=== PATIENT | male | born 1965 ===

== ENCOUNTER 2020-10-26 22:49 | Inpatient (IN) ==
[2020-10-26] MEDS ORDERED: PIPERACILLIN/TAZOBACTAM 3,375 MG in SODIUM CHLORIDE 0.9% 100 ML IV STA (23:27)
[2020-10-26] MEDS ORDERED: ONDANSETRON 4 MG/2 ML VIAL IV STA (23:27)
[2020-10-26] MEDS ORDERED: SODIUM CHLORIDE 0.9% 1,000 ML IV STA (23:27)
[2020-10-26] MEDS ORDERED: DIPH/TET/ACEL PERT BOOSTER VACCINE 0.5 ML VIAL IM ONE (23:27)
[2020-10-27 00:13] LABS: Basophils # 0.1 10*3/uL (0.0-0.2); Basophils % 0.4 % (0.0-0.8); Eosinophils # 0.2 10*3/uL (0.0-0.87); Eosinophils % 1.9 % (0.00-10.9); Hematocrit 38.9 VOL% (42.0-52.0); Hemoglobin 13.3 GM/DL (14.0-18.0); Immature Granulocytes % 0.5 %; Immature Granulocytes Absolute 0.07 #; Lymphocytes # 1.6 10*3/uL (1.4-4.0); Lymphocytes % 12.7 % (21.2-54.2); Mean Corpuscular HGB Conc 34.2 GM/DL (32-36); Mean Corpuscular Volume 82.6 FL (87-102); Mean Platelet Volume 10.4 FL (9.6-12.0); Monocytes % 7.2 % (1.7-12.7); Neutrophils % 77.3 % (38.7-73.9); Platelet Count 367 T/CUMM (130-400); Red Blood Count 4.71 MC/CUMM (3.8-5.5); Red Cell Distribution Width 12.6 % (9.3-17.3); White Blood Count 12.9 T/CUMM (4-12)
[2020-10-27 00:44] LABS: Albumin 2.5 G/DL (3.4-5.0); Bilirubin,Total 0.4 MG/DL (0.2-1.0); Calcium 8.6 MG/DL (8.5-10.1); Osmolality,Calculated 279.1 MOS/KG (273-304); Potassium 3.6 MMOL/L (3.5-5.1); Total Protein 7.7 G/DL (6.4-8.2)
[2020-10-27] MEDS ORDERED: ONDANSETRON 4 MG/2 ML VIAL IV PRN (01:42)
[2020-10-27] MEDS ORDERED: ACETAMINOPHEN 325 MG TABLET PO PRN (01:42)
[2020-10-27] MEDS ORDERED: GLUCAGON 1 MG VIAL IM PRN ×2 (01:42)
[2020-10-27] MEDS ORDERED: DEXTROSE 50% 25 GM/50 ML VIAL IV PRN ×2 (01:42)
[2020-10-27] MEDS: ENOXAPARIN 40 MG/0.4 ML SYRINGE SUBCUT SCH (02:52)
[2020-10-27] MEDS: SODIUM CHLORIDE 0.9% 1,000 ML IV SCH ×2 (02:52→14:25)
[2020-10-27] MEDS ORDERED: MORPHINE 4 MG/1 ML VIAL IV ONE (05:14)
[2020-10-27] MEDS: VANCOMYCIN INJ 1,000 MG in SODIUM CHLORIDE 0.9% 250 ML IV SCH ×2 (05:46→21:01)
[2020-10-27 06:42] LABS: Basophils % 0.3 % (0.0-0.8); Eosinophils # 0.2 10*3/uL (0.0-0.87); Eosinophils % 1.8 % (0.00-10.9); Hematocrit 37.9 VOL% (42.0-52.0); Hemoglobin 12.7 GM/DL (14.0-18.0); Immature Granulocytes % 0.5 %; Immature Granulocytes Absolute 0.06 #; Lymphocytes # 1.4 10*3/uL (1.4-4.0); Mean Corpuscular HGB Conc 33.5 GM/DL (32-36); Mean Corpuscular Volume 83.1 FL (87-102); Mean Platelet Volume 10.2 FL (9.6-12.0); Monocytes % 7.1 % (1.7-12.7); Neutrophils % 79.3 % (38.7-73.9); Platelet Count 336 T/CUMM (130-400); Red Blood Count 4.56 MC/CUMM (3.8-5.5); Red Cell Distribution Width 12.9 % (9.3-17.3); White Blood Count 12.5 T/CUMM (4-12)
[2020-10-27 07:12] LABS: Albumin 2.3 G/DL (3.4-5.0); Bilirubin,Total 0.4 MG/DL (0.2-1.0); Calcium 8.2 MG/DL (8.5-10.1); Osmolality,Calculated 279.7 MOS/KG (273-304); Potassium 3.8 MMOL/L (3.5-5.1)
[2020-10-27] MEDS: PIPERACILLIN/TAZOBACTAM 3,375 MG in SODIUM CHLORIDE 0.9% 100 ML IV SCH ×2 (09:06→15:15)
[2020-10-27] MEDS: PANTOPRAZOLE 40 MG TABLET PO SCH (09:06)
[2020-10-27] MEDS: INSULIN REGULAR 100 UNIT/ML SUBCUT SCH ×4 (09:06→21:01)
[2020-10-27] MEDS ORDERED: MORPHINE 4 MG/1 ML VIAL IV PRN (09:55)
[2020-10-27] MEDS: MORPHINE 4 MG/1 ML VIAL IV PRN ×2 (10:36→18:41)
[2020-10-28] MEDS: SODIUM CHLORIDE 0.9% 1,000 ML IV SCH ×4 (00:06→19:31)
[2020-10-28] MEDS: PIPERACILLIN/TAZOBACTAM 3,375 MG in SODIUM CHLORIDE 0.9% 100 ML IV SCH ×4 (00:09→23:35)
[2020-10-28] MEDS: ENOXAPARIN 40 MG/0.4 ML SYRINGE SUBCUT SCH (03:00)
[2020-10-28] MEDS: MORPHINE 4 MG/1 ML VIAL IV PRN ×2 (04:41→15:00)
[2020-10-28 05:06] LABS: Basophils # 0.1 10*3/uL (0.0-0.2); Basophils % 0.3 % (0.0-0.8); Eosinophils # 0.3 10*3/uL (0.0-0.87); Eosinophils % 1.5 % (0.00-10.9); Hematocrit 42.6 VOL% (42.0-52.0); Immature Granulocytes % 0.7 %; Immature Granulocytes Absolute 0.12 #; Lymphocytes # 2.8 10*3/uL (1.4-4.0); Lymphocytes % 16.7 % (21.2-54.2); Mean Corpuscular HGB Conc 32.9 GM/DL (32-36); Mean Corpuscular Volume 85.9 FL (87-102); Mean Platelet Volume 10.4 FL (9.6-12.0); Neutrophils % 74.8 % (38.7-73.9); Platelet Count 428 T/CUMM (130-400); Red Blood Count 4.96 MC/CUMM (3.8-5.5); Red Cell Distribution Width 13.1 % (9.3-17.3); White Blood Count 16.9 T/CUMM (4-12)
[2020-10-28 05:42] LABS: Osmolality,Calculated 275.8 MOS/KG (273-304); Potassium 3.5 MMOL/L (3.5-5.1)
[2020-10-28] MEDS ORDERED: fentaNYL 100 MCG/2 ML VIAL ONE (08:05)
[2020-10-28] MEDS ORDERED: SEVOFLURANE 1 UNIT/15 MINUTE INH ONE ×3 (08:05→10:39)
[2020-10-28] MEDS ORDERED: propofoL 200 MG/20 ML VIAL IV ONE (08:05)
[2020-10-28] MEDS ORDERED: LIDOCAINE 2% 5 ML VIAL ONE (08:05)
[2020-10-28] MEDS ORDERED: MIDAZOLAM 2 MG/2 ML VIAL ONE (08:05)
[2020-10-28] MEDS: glipiZIDE 5 MG TABLET PO SCH ×2 (09:04→16:46)
[2020-10-28] MEDS: INSULIN REGULAR 100 UNIT/ML SUBCUT SCH ×4 (09:04→21:12)
[2020-10-28] MEDS: PANTOPRAZOLE 40 MG TABLET PO SCH (09:05)
[2020-10-28] MEDS ORDERED: DEXTROSE 50% 25 GM/50 ML VIAL IV PRN (10:44)
[2020-10-28] MEDS ORDERED: ONDANSETRON 4 MG/2 ML VIAL IV PRN (11:05)
[2020-10-28] MEDS ORDERED: HYDROmorphone 2 MG/1 ML VIAL IV PRN (11:05)
[2020-10-28] MEDS ORDERED: HYDROmorphone 2 MG/1 ML VIAL ONE (11:05)
[2020-10-28] MEDS: VANCOMYCIN INJ 1,000 MG in SODIUM CHLORIDE 0.9% 250 ML IV SCH ×2 (13:15→21:07)
[2020-10-28] MEDS: CHOLECALCIFEROL 1,000 UNIT TABLET PO SCH (16:48)
[2020-10-29] MEDS: ENOXAPARIN 40 MG/0.4 ML SYRINGE SUBCUT SCH (01:12)
[2020-10-29] MEDS: MORPHINE 4 MG/1 ML VIAL IV PRN ×3 (01:21→16:25)
[2020-10-29] MEDS: SODIUM CHLORIDE 0.9% 1,000 ML IV SCH ×2 (03:51→12:31)
[2020-10-29 05:54] LABS: Basophils # 0.1 10*3/uL (0.0-0.2); Basophils % 0.5 % (0.0-0.8); Eosinophils # 0.4 10*3/uL (0.0-0.87); Eosinophils % 4.2 % (0.00-10.9); Hematocrit 36.8 VOL% (42.0-52.0); Hemoglobin 12.3 GM/DL (14.0-18.0); Immature Granulocytes % 0.5 %; Immature Granulocytes Absolute 0.05 #; Lymphocytes % 20.2 % (21.2-54.2); Mean Corpuscular HGB Conc 33.4 GM/DL (32-36); Mean Corpuscular Volume 83.6 FL (87-102); Mean Platelet Volume 10.3 FL (9.6-12.0); Monocytes % 7.9 % (1.7-12.7); Neutrophils % 66.7 % (38.7-73.9); Platelet Count 350 T/CUMM (130-400)
[2020-10-29 06:19] LABS: Osmolality,Calculated 283.3 MOS/KG (273-304); Potassium 3.7 MMOL/L (3.5-5.1)
[2020-10-29] MEDS: PANTOPRAZOLE 40 MG TABLET PO SCH (09:09)
[2020-10-29] MEDS: CHOLECALCIFEROL 1,000 UNIT TABLET PO SCH (09:09)
[2020-10-29] MEDS: glipiZIDE 5 MG TABLET PO SCH ×2 (09:09→16:44)
[2020-10-29] MEDS: VANCOMYCIN INJ 1,000 MG in SODIUM CHLORIDE 0.9% 250 ML IV SCH ×2 (09:13→23:24)
[2020-10-29] MEDS: INSULIN REGULAR 100 UNIT/ML SUBCUT SCH ×4 (12:32→21:12)
[2020-10-29] MEDS ORDERED: ERGOCALCIFEROL 50,000 UNIT CAPSULE PO ONE (12:45)
[2020-10-29] MEDS: PIPERACILLIN/TAZOBACTAM 3,375 MG in SODIUM CHLORIDE 0.9% 100 ML IV SCH ×2 (13:58→19:33)
[2020-10-30] MEDS: ENOXAPARIN 40 MG/0.4 ML SYRINGE SUBCUT SCH ×2 (01:25→20:57)
[2020-10-30] MEDS: PIPERACILLIN/TAZOBACTAM 3,375 MG in SODIUM CHLORIDE 0.9% 100 ML IV SCH ×2 (04:52→12:32)
[2020-10-30 06:31] LABS: Basophils % 0.6 % (0.0-0.8); Eosinophils # 0.5 10*3/uL (0.0-0.87); Hematocrit 37.6 VOL% (42.0-52.0); Hemoglobin 12.2 GM/DL (14.0-18.0); Immature Granulocytes % 0.6 %; Immature Granulocytes Absolute 0.04 #; Lymphocytes # 1.9 10*3/uL (1.4-4.0); Lymphocytes % 26.1 % (21.2-54.2); Mean Corpuscular HGB Conc 32.4 GM/DL (32-36); Mean Corpuscular Volume 85.3 FL (87-102); Mean Platelet Volume 10.1 FL (9.6-12.0); Monocytes % 7.7 % (1.7-12.7); Platelet Count 380 T/CUMM (130-400); Red Blood Count 4.41 MC/CUMM (3.8-5.5); Red Cell Distribution Width 13.1 % (9.3-17.3); White Blood Count 7.1 T/CUMM (4-12)
[2020-10-30] MEDS: SODIUM CHLORIDE 0.9% 1,000 ML IV SCH ×3 (07:00→20:56)
[2020-10-30 07:03] LABS: Calcium 8.5 MG/DL (8.5-10.1); Osmolality,Calculated 279.5 MOS/KG (273-304); Potassium 3.8 MMOL/L (3.5-5.1)
[2020-10-30] MEDS: MORPHINE 4 MG/1 ML VIAL IV PRN (07:13)
[2020-10-30] MEDS ORDERED: MAGNESIUM HYDROXIDE SUSP 30 ML UDCUP PO PRN (07:51)
[2020-10-30] MEDS ORDERED: ERGOCALCIFEROL 50,000 UNIT CAPSULE PO ONE (08:12)
[2020-10-30] MEDS: VANCOMYCIN INJ 1,000 MG in SODIUM CHLORIDE 0.9% 250 ML IV SCH (10:20)
[2020-10-30] MEDS: glipiZIDE 5 MG TABLET PO SCH ×2 (10:22→17:32)
[2020-10-30] MEDS: CHOLECALCIFEROL 5,000 UNIT TABLET PO SCH (10:22)
[2020-10-30] MEDS: PANTOPRAZOLE 40 MG TABLET PO SCH (10:22)
[2020-10-30] MEDS: INSULIN REGULAR 100 UNIT/ML SUBCUT SCH ×5 (10:23→20:57)
[2020-10-30] MEDS: BISACODYL 5 MG TABLET PO SCH (10:23)
[2020-10-30] MEDS ORDERED: cefTRIAXone 1,000 MG in SODIUM CHLORIDE 0.9% 100 ML IV SCH (18:00)
[2020-10-30] MEDS ORDERED: MORPHINE 2 MG/1 ML SYRINGE IV PRN (21:00)
[2020-10-31 06:35] LABS: Basophils # 0.1 10*3/uL (0.0-0.2); Basophils % 0.8 % (0.0-0.8); Eosinophils # 0.6 10*3/uL (0.0-0.87); Eosinophils % 9.3 % (0.00-10.9); Hematocrit 38.3 VOL% (42.0-52.0); Hemoglobin 12.9 GM/DL (14.0-18.0); Immature Granulocytes % 0.5 %; Immature Granulocytes Absolute 0.03 #; Lymphocytes # 1.8 10*3/uL (1.4-4.0); Lymphocytes % 30.6 % (21.2-54.2); Mean Corpuscular HGB Conc 33.7 GM/DL (32-36); Mean Corpuscular Volume 84.2 FL (87-102); Monocytes % 7.8 % (1.7-12.7); Platelet Count 401 T/CUMM (130-400); Red Blood Count 4.55 MC/CUMM (3.8-5.5); Red Cell Distribution Width 13.2 % (9.3-17.3)
[2020-10-31 07:04] LABS: Calcium 8.4 MG/DL (8.5-10.1); Osmolality,Calculated 283.4 MOS/KG (273-304); Potassium 4.3 MMOL/L (3.5-5.1)
[2020-10-31] MEDS: CHOLECALCIFEROL 5,000 UNIT TABLET PO SCH (08:41)
[2020-10-31] MEDS: INSULIN REGULAR 100 UNIT/ML SUBCUT SCH ×2 (08:41→11:46)
[2020-10-31] MEDS: glipiZIDE 5 MG TABLET PO SCH (08:41)
[2020-10-31] MEDS: BISACODYL 5 MG TABLET PO SCH (08:41)
[2020-10-31] MEDS: PANTOPRAZOLE 40 MG TABLET PO SCH (08:41)
[2020-10-31 11:39] VITALS: BP 131/81
== END 2020-10-31 14:07 | disposition home or self-care (01) | DRG 623 ==
LOC: N.ED 22:49 → N.EDINP 22:49 → N.3E 10-27 03:10
PROVIDERS: ADMIT Hospitalist; ATTEND Hospitalist